=== PATIENT | male | born 1995 | race Caucasian/White ===

== ENCOUNTER 2022-03-14 23:15 | Emergency (ER) | payer OTHER ==
[2022-03-14 23:23] VITALS: BP 125/79; PULSE 79; TEMP 98; BMI 25.2
[2022-03-15] MEDS ORDERED: MAG HYDROX/AL HYDROX/SIMETH 30 ML UNIT-DOSE CUP PO ONE (00:21)
[2022-03-15] MEDS ORDERED: SODIUM CHLORIDE 0.9% 500 ML INFUS.BAG IV ONE (00:21)
[2022-03-15] MEDS ORDERED: ONDANSETRON 4 MG/2 ML VIAL IVPUSH ONE (00:21)
[2022-03-15] MEDS ORDERED: ACETAMINOPHEN 1000 MG/100 ML BAG IVPB ONE (00:21)
[2022-03-15] MEDS ORDERED: FAMOTIDINE 20 MG/50 ML IVPB 50 ML IVPB ONE (00:21)
[2022-03-15 01:05] LABS: HEMATOCRIT 48.2 % (35.4-49); HEMOGLOBIN 15.9 GM/dL (11.7-16.9); MEAN CELL VOLUME 81.8 fl (80-96); MEAN PLT VOLUME 8.5 fl (7.5-11.1); PLATELET COUNT 287 10^3/uL (134-434); RBC 5.89 M/mm3 (4.00-5.60); RDW 12.8 % (11.9-15.9); WHITE BLOOD COUNT 13.9 K/mm3 (4.0-10.0)
[2022-03-15] MEDS ORDERED: MAG HYDROX/AL HYDROX/SIMETH 30 ML UNIT-DOSE CUP ONE (01:19)
[2022-03-15] MEDS ORDERED: ONDANSETRON 4 MG/2 ML VIAL ONE (01:19)
[2022-03-15] MEDS ORDERED: ACETAMINOPHEN INJECTION 100 ML IVPB ONE (01:19)
[2022-03-15 01:27] LABS: ALBUMIN 4.6 g/dl (3.4-5.0); BLOOD UREA NITROGEN 14.9 mg/dL (7-18); CALCIUM 9.4 mg/dL (8.5-10.1)
[2022-03-15 01:29] LABS: CREATININE 0.8 mg/dL (0.55-1.3)
[2022-03-15 01:31] LABS: BILIRUBIN,TOTAL 0.6 mg/dL (0.2-1)
[2022-03-15 02:56] LABS: ANISOCYTOSIS 2+; MACROCYTOSIS 0
== END 2022-03-15 02:40 | disposition home or self-care (01) ==
LOC: JER 23:15
DX: R11.10 Vomiting, unspecified (principal); R19.7 Diarrhea, unspecified; R10.9 Unspecified abdominal pain
CPT/HCPCS: 36415; 80053; 83690; 85025; 99281-25